=== PATIENT | male | born 1990 | race Caucasian/White ===

== ENCOUNTER 2018-01-24 11:51 | Day surgery (SDC) | payer BC, OTHER ==
[2018-01-24] MEDS ORDERED: Iopamidol 408 MG/ML 50 ML SDV ONE (11:55)
[2018-01-24] MEDS ORDERED: Lidocaine 2% 5 ML SDV ONE (11:55)
[2018-01-24] MEDS ORDERED: Ropivacaine 0.5% 5 MG/ML 30 ML SDV ONE (11:55)
[2018-01-24] MEDS ORDERED: Lidocaine 1% 0 ML ONE (11:55)
[2018-01-24] MEDS ORDERED: Betamethasone Acetate/Betamethasone Sod Phosphate 30 MG/5 ML MDV ONE (11:55)
--- NOTE | 2018-01-24 15:21 | OR ---
SURGEON: Christa Paul D.O. DATE OF PROCEDURE: 01/24/2018 OR STAFF PRESENT: 1. Anna Gibson RN. 2. Efe Oliva RN. 3. RT Willis. WOUND CLASS: I. PREOPERATIVE DIAGNOSES: 1. Lumbar herniated disk at L5-S1. 2. Chronic low back pain. POSTOPERATIVE DIAGNOSES: 1. Lumbar herniated disk at L5-S1. 2. Chronic low back pain. PROCEDURES PERFORMED: 1. Lumbar epidural steroid injection at L5-S1. 2. Fluoroscopic guidance for needle placement. 3. Local with oral Valium for sedation. SCREENING QUESTIONS: The patient answered "no" to all of the following questions: 1. Are you allergic to latex? 2. Do you have a bleeding disorder? 3. Do you have any current local or systemic infections? 4. Are you taking any anti-inflammatories or blood thinners? 5. Do you have any joint replacements, heart valve replacements, or a pacemaker? DESCRIPTION OF PROCEDURE: The patient had the procedure thoroughly explained including all possible risks, benefits and alternatives. Consent was signed in my clinic indicating understanding and willingness to proceed. The patient presented to [facility] and was escorted to the dressing room to disrobe and change into a hospital gown. Preoperative vital signs were taken and stable. The patient reported that Valium was taken prior to the procedure. The patient was brought back to the procedure room and placed in the prone position on the procedure room table. A pillow was placed under the hips in order to flatten the lumbar lordosis. The back was prepped with ChloraPrep and sterilely draped. All personnel in the operating room were dressed in appropriate attire including surgical scrubs, head and shoe covers. This was to ensure sterility while in the treatment room. During the time fluoroscopy was in use, all personnel in the operating room wore lead jacobs with thyroid collars. Sterile technique was used throughout the procedure. The patient was awake and conversant throughout the procedure. There was no evidence of infection at the site of needle insertion. Skeletal landmarks were identified under fluoroscopy for the lumbar epidural. Skin was anesthetized with 2% lidocaine with a sterile 27-gauge 1.5 inch needle. Then, a 20-gauge Tuohy epidural needle was placed in the epidural space with loss of resistance technique under fluoroscopic guidance. No heme, cerebrospinal fluid, or paresthesias were noted. Isovue-200 contrast dye was injected in 0.2 cubic centimeter increments and seen to outline the epidural space in both AP and lateral views. There was no intravascular flow pattern observed under live fluoroscopy. Then, 12 milligrams of Celestone was slowly injected after negative aspiration. The patient tolerated the procedure well. Vital signs were stable during and after the procedure. The staff escorted the patient to the recovery area and the patient was released in stable condition after a brief stay in the recovery room monitored by the nurse. The patient was given both oral and written discharge and follow up instructions with recommendation to follow up given for 2-3 weeks. The patient voiced understanding including understanding of those signs and symptoms that would require emergency care. The patient knows how to contact the office if there are any additional problems or questions in the meantime. PREOPERATIVE PAIN: 6/10. POSTOPERATIVE PAIN: 4/10. FOLLOWUP: Follow up in the Pain Clinic in 3 weeks. FLORINDA / CHA /[id number]
== END 2018-01-24 13:51 ==
LOC: MW.SDS 11:51
PROVIDERS: ATTEND Anesthesiology
DX: G89.29 Other chronic pain (principal); M51.27 Other intervertebral disc displacement, lumbosacral region; M51.37 Other intervertebral disc degeneration, lumbosacral region; M54.16 Radiculopathy, lumbar region; M79.18 Myalgia, other site
CPT/HCPCS: 62323; J0702; J2795; Q9966